=== PATIENT | male | born 1955 | race Caucasian/White ===

== ENCOUNTER 2019-06-27 06:43 | Emergency (ER) | payer OTHER ==
[2019-06-27 06:49] VITALS: BP 129/84
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
== END 2019-06-27 07:20 | disposition home or self-care (01) ==
LOC: ED 06:43
DX: S09.92XA Unspecified injury of nose, initial encounter (principal); S01.412A Laceration without foreign body of left cheek and temporomandibular area, initial encounter; S80.212A Abrasion, left knee, initial encounter; S80.211A Abrasion, right knee, initial encounter; V01.00XA Pedestrian on foot injured in collision with pedal cycle in nontraffic accident, initial encounter; Y93.02 Activity, running; Y92.9 Unspecified place or not applicable; R51 Headache
CPT/HCPCS: 99282